=== PATIENT | male | born 1975 ===

== ENCOUNTER 2019-07-04 19:30 | Outpatient (CLI) | payer BC | END 2019-07-04 19:31 | disposition home or self-care (01) | LOC: SLEEPLAB 19:30 | PROVIDERS: ATTEND Physician Assistant | DX: G47.33 Obstructive sleep apnea (adult) (pediatric) (principal); R06.83 Snoring; R09.89 Other specified symptoms and signs involving the circulatory and respiratory systems; K21.9 Gastro-esophageal reflux disease without esophagitis | CPT/HCPCS: 95811 ==